=== PATIENT | male | born 1960 | race Caucasian/White ===

== ENCOUNTER 2017-03-29 02:53 | Emergency (ER) | payer OTHER ==
[~2017-03-29] VITALS: Ht 182.9 cm; Wt 98.9 kg
[2017-03-29 03:30] LABS: HEMATOCRIT 44.4 % (38.0-50.0); MCH 29.9 PG (29.0-34.0); MCHC 33.1 G/DL (30.0-36.0); MCV 90.4 FL (86-99); MEAN PLAT.VOLUME 10.4 uM^3 (9.0-12.4); PLATELET COUNT 236 K/uL (156-360); RBC DIS.WIDTH-CV 13.5 % (11.8-14.6); RBC DIS.WIDTH-SD 45.1 % (39-53); RED BLOOD COUNT 4.91 M/uL (4.00-5.50); WHITE BLOOD COUNT 10.8 K/uL (4.1-10.2)
[2017-03-29 03:41] LABS: ADD MIUA? YES; BILIRUBIN NEGATIVE; BLOOD SMALL; COLOR YELLOW ((YELLOW)); GLUCOSE (STRIP) NEGATIVE; KETONES NEGATIVE; LEUKOCYTES NEGATIVE; NITRITE NEGATIVE; PROTEIN (STRIP) 30; SPECIFIC GRAVITY 1.032 (1.000-1.030)
[2017-03-29 03:43] LABS: CHLORIDE 106 mEq/L (99-109); SODIUM 139 mEq/L (136-147)
[2017-03-29 03:45] LABS: BACTERIA NONE SEEN /HPF; EPITHELIAL CELLS RARE /HPF; MUCUS TRACE /LPF; RED BLOOD CELLS 15-20 /HPF (0-5); UCUL ADDED? NO; WHITE BLOOD CELLS 0-5 /HPF (0-5)
[2017-03-29 03:45] LABS: GLUCOSE 102 mg/dL (70-99)
[2017-03-29 03:46] LABS: ANION GAP 10 MEQ/L (2-14)
[2017-03-29 03:47] LABS: TOTAL BILIRUBIN 0.5 mg/dL (0.0-1.0)
[2017-03-29 03:48] LABS: ALKALINE PHOSPHATASE 98 IU/L (3-129)
[2017-03-29 03:50] LABS: UREA NITROGEN (BUN) 20 mg/dL (9-23)
[2017-03-29 04:00] LABS: GFR ESTIMATE (CALCULATED) > 59 mL/min/
[2017-03-29 05:32] LABS: DIRECT BILIRUBIN 0.2 mg/dL (0.0-0.3); LIPASE 30 U/L (1.0-51.0)
[2017-03-29] MEDS ORDERED: FLAGYL500 MG PO (06:09)
[2017-03-29] MEDS ORDERED: ZOFRAN4 MG PO (06:09)
[2017-03-29] MEDS ORDERED: STOOL SOFTENER250 MG PO (06:09)
[2017-03-29] MEDS ORDERED: LEVAQUIN750 MG PO (06:09)
[2017-03-29] MEDS ORDERED: NORCO 5/3251 TABLET PO (06:09)
[2017-03-29 06:31] VITALS: BP 108/76
== END 2017-03-29 06:33 | disposition home or self-care (01) ==
LOC: EME 02:53
DX: K57.30 Diverticulosis of large intestine without perforation or abscess without bleeding (principal); I71.4 Abdominal aortic aneurysm, without rupture; I25.2 Old myocardial infarction; E78.5 Hyperlipidemia, unspecified; I10 Essential (primary) hypertension; Z95.5 Presence of coronary angioplasty implant and graft; Z91.040 Latex allergy status; Z87.891 Personal history of nicotine dependence
CPT/HCPCS: 74176; 80053; 81003; 82248; 83690; 85027; 99281; 99284; J3010; J7030